=== PATIENT | female | born 2000 | race American Indian/Alaskan Native ===

== ENCOUNTER 2019-08-15 16:49 | Emergency (ER) | payer BC ==
[2019-08-15] MEDS ORDERED: Ondansetron 4 MG Tab.DIS PO ONE ×2 (16:50→17:15)
[2019-08-15 16:58] VITALS: BP 111/51; PULSE 100
[2019-08-15] MEDS ORDERED: Ondansetron 4 MG Tab.DIS ONE (17:39)
--- NOTE | 2019-08-15 20:48 | EDM.PDOC ---
Scribed by Zuri Fernandes 08/15/19 1948 for Susy Brown NP ED HPI GENERAL MEDICAL PROBLEM - General Chief Complaint: Gastrointestinal Problem Stated Complaint: THROWING UP Time Seen by Provider: 08/15/19 17:20 Source of Information: Reports: Patient, RN, RN Notes Reviewed History Limitations: Reports: No Limitations - History of Present Illness INITIAL COMMENTS - FREE TEXT/NARRATIVE: Patient presents to the ER with nausea that started yesterday. Her sister is in the ER with the same complaint. The family all ate the same food. She has not vomited. Onset Date: 08/14/19 Duration: Getting Worse Location: Reports: Abdomen Quality: Reports: Ache Severity: Severe Improves with: Reports: None Worsens with: Reports: None Associated Symptoms: Reports: No Other Symptoms - Related Data Allergies Allergy/AdvReac Type Severity Reaction Status Date / Time No Known Allergies Allergy Verified 08/15/19 16:58 Home Meds: Home Meds . [No Known Home Meds] 11/15/15 [History] Past Medical History - Past Health History Medical/Surgical History: Denies Medical/Surgical History Social & Family History - Family History Family Medical History: Noncontributory - Tobacco Use Smoking Status *Q: Current Every Day Smoker Years of Tobacco use: 2 Packs/Tins Daily: 0.3 Second Hand Smoke Exposure: Yes - Recreational Drug Use Recreational Drug Use: No ED ROS GENERAL - Review of Systems Review Of Systems: Comprehensive ROS is negative, except as noted in HPI. ED EXAM, GI/ABD - Physical Exam Exam: See Below Exam Limited By: No Limitations General Appearance: Alert, WD/WN, No Apparent Distress Eyes: Bilateral: Normal Appearance Ears: Normal External Exam, Normal Canal, Hearing Grossly Normal, Normal TMs Nose: Normal Inspection, Normal Mucosa, No Blood Throat/Mouth: Normal Inspection, Normal Lips, Normal Teeth, Normal Gums, Normal Oropharynx, Normal Voice, No Airway Compromise Head: Atraumatic, Normocephalic Neck: Normal Inspection, Supple, Non-Tender, Full Range of Motion Respiratory/Chest: No Respiratory Distress, Lungs Clear, Normal Breath Sounds, No Accessory Muscle Use, Chest Non-Tender Cardiovascular: Normal Peripheral Pulses, Regular Rate, Rhythm, No Edema, No Gallop, No JVD, No Murmur, No Rub GI/Abdominal Exam: Normal Bowel Sounds, Soft, Non-Tender, No Organomegaly, No Distention, No Abnormal Bruit, No Mass, Pelvis Stable (Female) Exam: Deferred Rectal (Female) Exam: Deferred Back Exam: Normal Inspection, Full Range of Motion, NT Extremities: Normal Inspection, Normal Range of Motion, Non-Tender, Normal Capillary Refill, No Pedal Edema Neurological: Alert, Oriented, CN II-XII Intact, Normal Cognition, Normal Gait, Normal Reflexes, No Motor/Sensory Deficits Psychiatric: Normal Affect, Normal Mood Skin Exam: Warm, Dry, Intact, Normal Color, No Rash Lymphatic: No Adenopathy Course - Vital Signs Last Recorded V/S: Last Vital Signs Temp 37.2 C 08/15/19 16:54 Pulse 100 08/15/19 16:54 Resp 18 08/15/19 16:54 BP 111/51 L 08/15/19 16:54 Pulse Ox 97 08/15/19 16:54 - Orders/Labs/Meds Meds: Medications Discontinued Medications Generic Name Dose Route Start Last Admin Trade Name Demetria PRN Reason Stop Dose Admin Ondansetron HCl 4 mg 08/15/19 17:15 08/15/19 17:21 Zofran Odt PO 08/15/19 17:16 4 mg ONETIME ONE Administration Ondansetron HCl Confirm 08/15/19 17:39 Zofran Odt Administered 08/15/19 17:40 Dose 8 mg .ROUTE .STK-MED ONE Departure - Departure Time of Disposition: 17:37 Disposition: Home, Self-Care 01 Condition: Good Clinical Impression: Gastroenteritis - Discharge Information Instructions: Viral Gastroenteritis, Adult Forms: ED Department Discharge Additional Instructions: Zofran as needed for nausea q 6 hours. If unable to keep fluids down and vomiting with diarrhea or if abdominal pain worsens; then return to the ER Sepsis Event Note - Evaluation Sepsis Screening Result: No Definite Risk - Focused Exam Vital Signs: Vital Signs Temp Pulse Resp BP Pulse Ox 08/15/19 16:54 37.2 C 100 18 111/51 L 97 Date Exam was Performed: 08/15/19 Time Exam was Performed: 17:45 I have read and agree with the documentation that has been completed regarding this visit. By signing this record, I attest that the documentation was completed in my physical presence and is an accurate record of the encounter.
== END 2019-08-15 17:47 | disposition home or self-care (01) ==
LOC: DL.ED 16:49
DX: K52.9 Noninfective gastroenteritis and colitis, unspecified (principal); F17.210 Nicotine dependence, cigarettes, uncomplicated
CPT/HCPCS: 99283; A9270

== ENCOUNTER 2020-11-08 00:05 | Inpatient (IN) | payer BC ==
[~2020-11-08 00:05] MED LIST: Carboprost Tromethamine 250 MCG/1 ML Amp IM PRN; Lactated Ringers 1,000 ML IV SCH; Lidocaine 1% 30 ML SDV INJECT PRN; Methylergonovine 0.2 MG/1 ML Amp IM PRN; Misoprostol 25 MCG (1/4 of 100 MCG) Tab PO PRN; Misoprostol 400 MCG (4 X 100 MCG TAB) RECTAL PRN; Ondansetron 4 MG/2 ML SDV IVPUSH PRN; Oxytocin/Normal Saline 30 UNIT/500 ML BAG IV SCH; Penicillin G Potassium 5 MILLUNITS in Sodium Chloride 0.9% 100 ML IV ONE; Sodium Chloride 0.9% 10 ML Syringe FLUSH PRN; Tranexamic Acid 1,000 MG in Sodium Chloride 0.9% 100 ML IV PRN
[2020-11-08] MEDS ORDERED: Misoprostol 400 MCG (4 X 100 MCG TAB) RECTAL PRN (02:03)
[2020-11-08] MEDS ORDERED: Misoprostol 25 MCG (1/4 of 100 MCG) Tab PO PRN (02:03)
--- NOTE | 2020-11-08 02:14 | HP ---
HISTORY OF PRESENT ILLNESS/CHIEF COMPLAINT: Princess Guardado is a 20-year-old G1, p 0-0-0-0 at 40 weeks 2 days gestation with an estimated delivery date of 11/05/2020 based on [id number]-1-day ultrasound, who presents for induction of labor. The patient is experiencing mild intermittent contractions throughout today, but these are tolerable and have not been increasing in intensity markedly. She has had no change in vaginal discharge or no leakage of fluid. She is having some lower back pain that has been constant throughout . Otherwise, she has no concerns this evening. OBSTETRIC HISTORY: The patient is a primigravida. GYNECOLOGIC HISTORY: No history of HSV. LABS: ABO blood type O positive, antibody screen negative. Rubella antibody IgG positive, rubella IgG antibody index 2.2. Syphilis nonreactive. Hep B surface antigen nonreactive. HIV nonreactive. Gonorrhea and chlamydia not detected. Hep C antibody nonreactive. Wet prep positive for clue cells, negative for trichomonas, fungal elements, budding yeast. Glucose 1-hour failed at 142 mg/dL, 3-hour glucose tolerance test passed. Group B streptococcus positive, noted 10/11/2020. PAST MEDICAL HISTORY: None. PAST SURGICAL HISTORY: None. PRIOR TO ADMISSION MEDICATIONS: 1. vitamin. 2. Ferrous sulphate 325 mg. ALLERGIES: No known drug allergies. SOCIAL HISTORY: Smoking status: Former smoker of 6 to 7 cigarettes daily. Quit date: 05/05/2020. Smokeless tobacco status: Never used. Alcohol use: Not currently. Drug use: Not currently, past recreational use of marijuana. Works at [employer] in [place]. Living with grandmother in [place]. Significant other is NeyDonald Anne. This their 1st baby together. FAMILY HISTORY: Diabetes in maternal grandmother. Negative family history of Down syndrome, multiple births, cystic fibrosis, defects. REVIEW OF SYSTEMS: General: No fevers, chills, malaise, appetite changes. HEENT: No headaches, vision changes, hearing changes, congestion, rhinorrhea, nasal discharge. Dermatologic: No skin changes, rashes, or lesions. Respiratory: No cough, shortness of breath, recent illness, pleuritic chest pain. Cardiovascular: No chest pain. Gastrointestinal: No changes to bowel or bladder. : No changes to vaginal discharge. Neuromuscular: No muscular weakness, numbness, tingling, arthritis, arthralgias. Some mild lower back pain consistent throughout . PHYSICAL EXAMINATION: Admission vitals: To be updated in [facility], General Appearance: She is alert, well appearing, in no apparent distress, accompanied at bedside by Wyatt. Lungs: Clear to auscultation bilaterally. No wheezes, rales, or rhonchi. Symmetric air entry. Heart: Regular rate and rhythm. No murmurs, rubs, gallops. Abdomen: Gravid, nontender. FHT category 1 tracing. Pelvic: Normal external genitalia, vulva, vagina, and cervix. Extremities: No redness or tenderness in the calves or thighs. Scant dependent edema of the lower extremities. SKIN: Normal coloration and turgor. No rashes. ASSESSMENT AND PLAN: Princess Guardado is a 20-year-old G1, P0-0-0-0 at 40 weeks and 2 days with an estimated delivery date of 11/05/2020 based on a 13-week-5- day ultrasound on 05/05/2020, who presents for elective induction of labor. 1. Maternal well-being: Well. 2. well-being: FHT category 1. 3. Labor, we will proceed with induction of labor and placement of Cytotec. 4. Group B streptococcus status: Positive. Plan: We will provide penicillin intrapartum following rupture of membranes. 5. Pain management: To be discussed at next cervical check. The patient discussed with Dr. Margret Dahl. [facility] /[id number] Patient was personally seen and examined with the medical student. I reviewed the noted scribed on my behalf and necessary changes have been made to reflect my opinion on the history, exam, assessment, and plan. Margret Dahl MD [facility]
[2020-11-08] MEDS ORDERED: hydrOXYzine HCl 25 MG Tab PO PRN (02:16)
[2020-11-08] MEDS: Penicillin G Potassium 3 MILLUNITS in Sodium Chloride 0.9% 100 ML IV SCH ×5 (02:32→22:45)
[2020-11-08] MEDS ORDERED: fentaNYL 100 MCG/2 ML SDV ONE ×2 (07:30→20:52)
[2020-11-08] MEDS ORDERED: Sodium Bicarbonate 4.2% 2.5 MEQ/5 ML SDV ONE ×3 (07:30→21:24)
[2020-11-08] MEDS ORDERED: EPINEPHrine 1 MG/1 ML Amp ONE ×3 (07:30→21:24)
[2020-11-08] MEDS: Lactated Ringers 1,000 ML IV SCH ×3 (10:00→21:17)
--- NOTE | 2020-11-08 11:54 | PN ---
DATE: 11/08/2020 SUBJECTIVE: Princess is feeling contractions, increasing in intensity. Feels slightly more intense than period cramps. No other complaints at this time. Has had cytotec x2. Has not started pitocin or penicillin yet. OBJECTIVE: Current Vital Signs: T 99.2, BP 119/69, P 85. General: Alert, no concerning distress. FHT category 1, baseline 150, moderate variability, positive for accelerations, negative for deceleration. [place]: elaine average 6 in 10-minute window. Pelvic: 1.5 cm, 75% effacement, station -2, soft cervix Frias score: 5 IMPRESSION AND PLAN: Ms. Guardado is a 20-year-old female, at 40w3d gestation, admitted for induction of labor. 1. Maternal well-being, doing well. 2. well-being, FHT category 1. 3. Labor: Labor is progressing, Cytotec x2. We will hold on Cytotec at this time. Encouraged the patient to bounce on labor ball, move around, or take bath. We will monitor strip to get baseline and recheck within an hour. Frias score of 5. We will consider starting Pitocin. 4. GBS status positive: We will start penicillin per protocol once Pitocin is started. 5. Pain management: Pain controlled, rates at 02/09 FRANCISCA Estevez [facility] /[id number] Patient was personally seen and examined with the medical student. I reviewed the noted scribed on my behalf and necessary changes have been made to reflect my opinion on the history, exam, assessment, and plan. Margret Dahl MD [facility]
[2020-11-08] MEDS: Oxytocin/Normal Saline 30 UNIT/500 ML BAG IV SCH (12:45)
--- NOTE | 2020-11-08 13:36 | PN ---
DATE: 11/08/2020 SUBJECTIVE: Princess feels contractions, increasing in intensity. Feels slightly more intense than period cramps. No other complaints at this time. Has had Cytotec x2. Has not started Pitocin or penicillin yet. OBJECTIVE: Current Vital Signs: BP 142/66, P 84, T afebrile. General: Alert, no concerning distress. FHT: Category 1, baseline 150, moderate variability, accelerations present, decelerations absent. [place]: Saman average 6 in 10-minute window. Pelvic: 2.5 cm, 75% effacement, station -2, soft cervix. IMPRESSION AND PLAN: Ms. Guardado is a 20-year-old female at 40W3D gestation, admitted for induction of labor. 1. Maternal well-being: Doing well. 2. well-being: FHT category 1. 3. Labor: Labor is progressing, Cytotec x2. We will hold Cytotec at this time. Encouraged the patient to bounce on labor ball, move around, or take a bath. We will monitor strip to get baseline. Once contractions space out, we will start Pitocin per protocol. 4. Group B streptococcus status positive: We will start penicillin per protocol once Pitocin is started. 5. Pain management: Pain is being controlled, rates at 6/10. FRANCISCA Estevez [facility] /[id number] Patient was personally seen and examined with the medical student. I reviewed the noted scribed on my behalf and necessary changes have been made to reflect my opinion on the history, exam, assessment, and plan. Margret Dahl MD [facility]
[2020-11-08] MEDS ORDERED: Penicillin G Potassium 5 MILLUNITS in Sodium Chloride 0.9% 100 ML IV ONE (14:30)
[2020-11-08] MEDS ORDERED: Ondansetron 4 MG/2 ML SDV ONE (20:54)
--- NOTE | 2020-11-08 21:14 | PCM.SN.2 ---
- Free Text/Narrative Note: Intrathecal. Sitting position, sterile prep and drape. 1% lidocaine w bicarb for skinwheal to L2 L3 interspace. Introducer, 24 ga pencan x 1. Pos CSF, neg heme, neg parasthesia. 0.1 ml pf 1:1000 pf Epi, 20 mcg pf sufenta, 30 mcg pf fentanyl, 0.4 ml pf NS and 6 mg of 0.75% pf bupivacaine injected after CSF aspiration. Pt to L lateral position. Procedure time 2054 to 2124
--- NOTE | 2020-11-08 21:21 | PN ---
DATE: 11/08/2020 SUBJECTIVE: Princess feels contractions, which are increasing in intensity. No other complaints at this time. Has had Cytotec x2. Pitocin is running at rate of 2. 1 round of penicillin complete, 2nd round started. PROCEDURES: Artificial rupture of membranes performed at 6:45 p.m. Mec-stained fluid. FHT category 1 prior and after procedure. OBJECTIVE: General: Alert, no concerning distress. FHT: Category 1, baseline 150s, moderate variability, accelerations present, decelerations absent. [place]: Saman average 6 in 10-minute window. Pelvic: After AROM, dilated 4 cm, 75% effacement, station -2. IMPRESSION AND PLAN: Ms. Guardado is a 20-year-old female, G1, P0, at 40 W, 3 D gestation, admitted for induction of labor. 1. Maternal well-being: Doing well. 2. well-being: FHT category 1. 3. Labor: Labor is progressing, Cytotec x2. We will hold Cytotec at this time. Pitocin at rate of 2. Treating with penicillin per protocol. AROM performed at 6:45 p.m. Mec-stained fluid. Continue to encourage the patient to bounce on labor ball, move around, or take bath. We will continue to titrate Pitocin per protocol. 4. Pain management: Pain is being controlled. Discussed pain management during labor. We will consider intrathecal when indicated. [facility] /[id number] Patient was personally seen and examined with the medical student. I reviewed the noted scribed on my behalf and necessary changes have been made to reflect my opinion on the history, exam, assessment, and plan. Margret Dahl MD [facility]
[2020-11-08] MEDS ORDERED: fentaNYL 100 MCG/2 ML SDV ITHECAL ONE (21:24)
[2020-11-08] MEDS ORDERED: Sodium Chloride 0.9% 20 ML SDV ONE (21:24)
[2020-11-09] MEDS ORDERED: fentaNYL 100 MCG/2 ML SDV ONE (01:19)
[2020-11-09] MEDS ORDERED: EPINEPHrine 1 MG/1 ML Amp ONE ×2 (01:19→01:20)
[2020-11-09] MEDS ORDERED: fentaNYL 100 MCG/2 ML SDV ITHECAL ONE (01:20)
[2020-11-09] MEDS ORDERED: Sodium Chloride 0.9% 20 ML SDV IV ONE (01:20)
[2020-11-09] MEDS ORDERED: Sodium Bicarbonate 4.2% 2.5 MEQ/5 ML SDV ONE ×2 (01:20)
--- NOTE | 2020-11-09 01:39 | PCM.SN.2 ---
- Free Text/Narrative Note: Intrathecal. Sitting position, sterile prep and drape. 1% lidocaine w bicarb for skinwheal to L2 L3 interspace. Introducer, 24 ga pencan x 1. Pos CSF, neg heme, neg parasthesia. 0.1 ml pf 1:1000 pf Epi, 20 mcg pf sufenta, 30 mcg pf fentanyl, 0.4 ml pf NS and 6 mg of 0.75% pf bupivacaine injected after CSF aspiration. Pt to L lateral position. Procedure time 0120 to 0150
[2020-11-09] MEDS: Lactated Ringers 1,000 ML IV SCH ×2 (02:33→03:35)
[2020-11-09] MEDS: Penicillin G Potassium 3 MILLUNITS in Sodium Chloride 0.9% 100 ML IV SCH ×2 (02:34→06:40)
[2020-11-09] MEDS ORDERED: Lidocaine 1% 30 ML SDV ONE (05:29)
[2020-11-09] MEDS ORDERED: Oxytocin 10 Units/1 ML SDV IM PRN (06:21)
[2020-11-09] MEDS ORDERED: Benzocaine/Menthol 20%-0.5% Spray 56 GM Canister TOP PRN (06:21)
[2020-11-09] MEDS ORDERED: Carboprost Tromethamine 250 MCG/1 ML Amp IM PRN (06:21)
[2020-11-09] MEDS ORDERED: Acetaminophen 325 MG Tab PO PRN (06:21)
[2020-11-09] MEDS ORDERED: Sodium Chloride 0.9% 10 ML Syringe FLUSH PRN (06:21)
[2020-11-09] MEDS ORDERED: Simethicone 80 MG Tab.Chew PO PRN (06:21)
[2020-11-09] MEDS ORDERED: Zolpidem 5 MG Tab PO PRN (06:21)
[2020-11-09] MEDS ORDERED: Misoprostol 400 MCG (4 X 100 MCG TAB) RECTAL PRN (06:21)
[2020-11-09] MEDS ORDERED: Tranexamic Acid 1,000 MG in Sodium Chloride 0.9% 100 ML IV PRN (06:21)
[2020-11-09] MEDS: Oxytocin/Normal Saline 30 UNIT/500 ML BAG IV SCH (06:51)
--- NOTE | 2020-11-09 07:22 | PN ---
DATE: 11/08/2020 Labor Progress Note SUBJECTIVE: Princess is feeling contractions, increasing intensity, and starting to feel back labor. No other complaints at this time. Discussed the possibility of an intrathecal as labor progresses. Has had Cytotec x2. Started Pitocin currently at a rate of 2. Started the first round of penicillin. OBJECTIVE: BP 132/71, P 80. General: Alert, no concerning distress. FHT category 1: Baseline 145, moderate variability, accelerations present, decelerations absent. [place]: Saman average 6 in 10-minute window, dysfunctional pattern. Pelvic exam: 4 cm, 75% effacement, station -1, soft cervix. IMPRESSION AND PLAN: Ms Guardado is a 20-year-old female, G1, P0, at 40-W, 3-D gestation, admitted for induction of labor. Maternal well-being, doing well. well-being: heart tones category 1. Labor: Labor progressing, Cytotec x2, Pitocin at rate of 2. Encouraged the patient to bounce on labor ball, move around, or take a bath. We will increase Pitocin per protocol. GBS status positive: First round of penicillin administered. We will start the next dose after 4 hours. Pain management: Pain controlled, we will consider intrathecal as labor progresses. [facility] /[id number] Patient was personally seen and examined with the medical student. I reviewed the noted scribed on my behalf and necessary changes have been made to reflect my opinion on the history, exam, assessment, and plan. Margret Dahl MD [facility]
--- NOTE | 2020-11-09 08:16 | PCM.DEL ---
L & D Note - General Info Date of Service: 11/09/20 - Delivery Note Labor: Augmented by ARM, Augmented by Oxytocin Cervical Ripening Method: Misoprostil, Oxytocin Delivery Outcome: Livebirth Delivery Method: Spontaneous Vaginal Delivery-Single Presentation: Left Occiput Anterior (PER) Nuchal Cord: None Anesthesia Type: Intrathecal, Nitrous Oxide Anesthetic: Lidocaine (Xylocaine) 1% Plain Local Anesthetic Volume: Other (10 cc) Episiotomy Type: None Laceration: 2nd Degree, Perineal Suture type: Vicryl Suture size: 3-0 Placenta: Intact, Spontaneous Cord: 3 Vessels Estimated Blood Loss: 300 : Bulb Syringe, Stimulated Provider: Margret Dahl Score 1 min: 8 Score 5 min: 9 Post Delivery Events: Shoulder Dystocia (45 second) Delivery Comments (Free Text/Narrative):: Patient was admitted for induction of labor secondary to post dates. She received 2 doses of cytotec then started on pitocin. AROM performed for mec stained fluid. She received 2 intrathecals and utilized nitrous oxide while pushing. She progressed to complete dilation and pushed for less than 2 hours. Delivery was complicated by shoulder dystocia. head was in OA position and rotated to PER position. Patient was placed in [place] and suprapubic pressure was applied. Anterior shoulder was delivered by hooking the axilla and giving f irm traction. Infant's body then delivered without difficulty. Infant was placed on maternal abdomen and cord was clamped and cut. taken to warmer, dried and stimulated. Placenta was delivered intact via active management. Oxytocin was initiated immediately following the delivery of the placenta. Cervix, vagina, and perineum were explored. A 2nd degree perineal laceration was repaired in the usual fashion. Mother and remained stable and in the delivery room. Apgars were 8 and 9. The time elapsed from delivery of head to delivery of body was 45 seconds. - General Info Date of Service: 11/09/20 - Patient Data Vitals - Most Recent: Last Vital Signs Temp 98.9 F 11/09/20 01:37 Pulse 107 H 11/09/20 06:45 Resp 12 11/08/20 18:15 BP 140/66 11/09/20 06:45 Pulse Ox 97 11/08/20 23:15 Weight - Most Recent: 220 lb Lab Results Last 24 Hours: Laboratory Results - last 24 hr 11/09/20 Range/Units 07:52 WBC 25.3 H* (5.0-10.0) 10^3/uL RBC 3.56 L (4.2-5.4) 10^6/uL Hgb 10.9 L (12.0-16.0) g/dL Hct 32.1 L (37.0-47.0) % MCV 90.2 (80-100) fL MCH 30.6 (27.0-34.0) pg MCHC 34.0 (33.0-35.0) g/dL Plt Count 323 (150-450) 10^3/uL Med Orders - Current: Current Medications Acetaminophen (Tylenol) 650 mg PO Q4H PRN PRN Reason: Pain/Fever Carboprost Tromethamine (Hemabate Ds) 250 mcg IM ASDIRECTED PRN PRN Reason: HEMORRHAGE Hydroxyzine HCl (Atarax) 50 mg PO ONETIME PRN PRN Reason: Sleep Last Admin: 11/08/20 02:28 Dose: 50 mg Documented by: Lactated Ringer's (Ringers, Lactated) 1,000 mls @ 999 mls/hr IV ASDIRECTED ON LICENSE OF [facility] Last Admin: 11/08/20 21:13 Dose: 999 mls/hr Documented by: Oxytocin/Sodium Chloride (Pitocin In Ns 30 Unit/500 Ml) 30 unit in 500 mls @ 2 mls/hr IV TITRATE GAV[place]; Protocol Last Admin: 11/09/20 06:51 Dose: 250 munits/min, 250 mls/hr Documented by: Lactated Ringer's (Ringers, Lactated) 1,000 mls @ 125 mls/hr IV ASDIRECTED [place] Last Admin: 11/09/20 03:35 Dose: 125 mls/hr Documented by: Tranexamic Acid 1,000 mg/ (Sodium Chloride) 110 mls @ 660 mls/hr IV ONETIME PRN PRN Reason: Bleeding Oxytocin/Sodium Chloride (Pitocin In Ns 30 Unit/500 Ml) 30 unit in 500 mls @ 2 mls/hr IV TITRATE GAVIOTA; Protocol Penicillin G Potassium 3 (millunits/ Sodium Chloride) 100 mls @ 200 mls/hr IV Q4HR GAV[place] Last Admin: 11/08/20 18:01 Dose: Not Given Documented by: Lidocaine HCl (Xylocaine-Mpf 1%) 30 ml INJECT ASDIRECTED PRN PRN Reason: Perineal Repair Last Admin: 11/09/20 05:35 Dose: 30 ml Documented by: Methylergonovine Maleate (Methergine) 0.2 mg IM ASDIRECTED PRN PRN Reason: Hemorrhage Misoprostol (Misoprostol 25 Mcg (1/4 Of 100 Mcg) Tab) 25 mcg PO Q4H PRN PRN Reason: cervical ripening Last Admin: 11/08/20 02:10 Dose: 25 mcg Documented by: Misoprostol (Cytotec) 800 mcg RECTAL ASDIRECTED PRN PRN Reason: Hemorrhage Ondansetron HCl (Zofran) 4 mg IVPUSH Q4H PRN PRN Reason: Nausea/Vomiting Last Admin: 11/08/20 21:12 Dose: 4 mg Documented by: Sodium Chloride (Saline Flush) 10 ml FLUSH ASDIRECTED PRN PRN Reason: Keep Vein Open Last Admin: 11/08/20 10:06 Dose: 10 ml Documented by: Discontinued Medications Epinephrine HCl (Epinephrine 1 Mg/1 Ml Amp) Confirm Administered Dose 1 mg .ROUTE .STK-MED ONE Stop: 11/08/20 07:31 Last Admin: 11/08/20 18:01 Dose: Not Given Documented by: Fentanyl (Fentanyl 100 Mcg/2 Ml Sdv) Confirm Administered Dose 100 mcg .ROUTE .STK-MED ONE Stop: 11/08/20 07:31 Last Admin: 11/08/20 18:01 Dose: Not Given Documented by: Penicillin G Potassium 5 (millunits/ Sodium Chloride) 100 mls @ 200 mls/hr IV ONETIME ONE Stop: 11/07/20 22:29 Last Admin: 11/08/20 02:32 Dose: Not Given Documented by: Misoprostol (Cytotec) 25 mcg PO Q4H PRN PRN Reason: cervical ripening Misoprostol (Cytotec) 800 mcg RECTAL ASDIRECTED PRN PRN Reason: Hemorrhage Sodium Bicarbonate (Sodium Bicarbonate 4.2% 2.5 Meq/5 Ml Sdv) Confirm Administered Dose 2.5 meq .ROUTE .STK-MED ONE Stop: 11/08/20 07:31 Last Admin: 11/08/20 18:01 Dose: Not Given Documented by: Sufentanil Citrate (Sufentanil 50 Mcg/1 Ml Amp) Confirm Administered Dose 50 mcg .ROUTE .STK-MED ONE Stop: 11/08/20 07:31 Last Admin: 11/08/20 18:01 Dose: Not Given Documented by: - Problem List Review Problem List Initiated/Reviewed/Updated: Yes - My Orders Last 24 Hours: My Active Orders 11/08/20 Lunch Clear Liquid Diet [DIET] 11/09/20 02:15 Insert Urinary Catheter [OM.PC] Q24H 11/09/20 06:21 Acetaminophen [TylenoL] 650 mg PO Q6H PRN Benzocaine/Menthol [Dermoplast Pain Relief [place]] See Dose Instructions TOP Q4H PRN Carboprost Tromethamine [Hemabate DS] 250 mcg IM ASDIRECTED PRN Docusate Sodium [Colace] 100 mg PO BID PRN Ibuprofen [Motrin] 800 mg PO Q8H PRN Oxytocin [Pitocin] 10 unit IM ONETIME PRN Simethicone 80 mg PO Q4H PRN Sodium Chloride 0.9% [Saline Flush] 10 ml FLUSH ASDIRECTED PRN Tranexamic Acid [Cyklokapron] 1,000 mg Sodium Chloride 0.9% [Normal Saline] 100 ml IV ONETIME Zolpidem [Ambien] 5 mg PO BEDTIME PRN miSOPROStoL [Cytotec] 800 mcg RECTAL ONETIME PRN 11/09/20 06:22 Up ad Rama [RC] ASDIRECTED Assess Lochia [WOMSER] Per Unit Routine Assess Uterine Involution [WOMSER] Per Unit Routine Breast Pump [WOMSER] Per Unit Routine Ice Therapy [OM.PC] Per Unit Routine Perineal Care [OM.PC] Per Unit Routine Saline Lock Insert [OM.PC] Urgent Sitz Bath [OM.PC] Per Unit Routine 11/09/20 Breakfast Regular Diet [DIET] 11/09/20 09:00 Vit with Ca/FA/Iron [ Plus Iron] 1 each PO DAILY 11/09/20 Lunch Regular Diet [DIET] 11/09/20 Dinner Regular Diet [DIET]
[2020-11-09] MEDS: Ibuprofen 800 MG Tab PO PRN ×2 (09:26→17:50)
[2020-11-09] MEDS: Prenatal Multivitamin with Calcium/Folic Acid/Iron Tab PO SCH (09:26)
[2020-11-09] MEDS: Docusate Sodium 100 MG Cap PO PRN ×2 (09:26→21:09)
[2020-11-09] MEDS: Acetaminophen 325 MG Tab PO PRN (21:09)
[2020-11-10] MEDS: Ibuprofen 800 MG Tab PO PRN ×3 (01:52→17:28)
--- NOTE | 2020-11-10 08:10 | PCM.DCSUM1 ---
Discharge Summary - Hospital Course Free Text/Narrative:: Patient admitted for induction of labor due to post dates. She received 2 doses of Cytotec followed by Pitocin. AROM performed with mec stained fluid. She received an intrathecal X2. She progressed to complete and pushed for less than 2 hours. Delivery complicated by a 45 second shoulder dystocia. suffered right clavicular fracture and brachial plexus injury during delivery. Patient's post course was uncomplicated. She was started on iron for acute blood loss anemia. She was discharged home on post day 2. - Discharge Data Discharge Date: 11/11/20 Discharge Disposition: Home, Self-Care 01 Condition: Good - Referral to Home Health Primary Care Physician: Margret Dahl MD - Discharge Plan *PRESCRIPTION DRUG MONITORING PROGRAM REVIEWED*: Not Applicable *COPY OF PRESCRIPTION DRUG MONITORING REPORT IN PATIENT MAXIMILIAN: Not Applicable Home Medications: Home Meds Acetaminophen [Tylenol] 650 mg PO Q4H PRN tablet 11/11/20 [Rx] Docusate Sodium [Colace] 100 mg PO BID PRN cap 11/11/20 [Rx] Ferrous Sulfate 325 mg PO BIDMEALS tablet 11/11/20 [Rx] Ibuprofen [Motrin] 800 mg PO Q8H PRN tablet 11/11/20 [Rx] Vit with Ca/FA/Iron [ Plus Iron] 1 each PO DAILY tablet 11/11/20 [Rx] Patient Handouts: Baby Blues, Care of a Perineal Tear, Care After Vaginal Delivery - Discharge Summary/Plan Comment DC Time >30 min.: No - Patient Data Vitals - Most Recent: Last Vital Signs Temp 97.8 F 11/09/20 20:00 Pulse 91 11/09/20 20:00 Resp 16 11/09/20 20:00 BP 125/59 L 11/09/20 20:00 Pulse Ox 97 11/08/20 23:15 Weight - Most Recent: 220 lb Lab Results - Last 24 hrs: Laboratory Results - last 24 hr 11/10/20 Range/Units 06:10 WBC 14.1 H (5.0-10.0) 10^3/uL RBC 2.72 L (4.2-5.4) 10^6/uL Hgb 8.3 L D (12.0-16.0) g/dL Hct 25.0 L (37.0-47.0) % MCV 91.9 (80-100) fL MCH 30.5 (27.0-34.0) pg MCHC 33.2 (33.0-35.0) g/dL Plt Count 263 (150-450) 10^3/uL Med Orders - Current: Current Medications Acetaminophen (Tylenol) 650 mg PO Q4H PRN PRN Reason: Pain/Fever Last Admin: 11/09/20 21:09 Dose: 650 mg Documented by: Carboprost Tromethamine (Hemabate Ds) 250 mcg IM ASDIRECTED PRN PRN Reason: HEMORRHAGE Hydroxyzine HCl (Atarax) 50 mg PO ONETIME PRN PRN Reason: Sleep Last Admin: 11/08/20 02:28 Dose: 50 mg Documented by: Lactated Ringer's (Ringers, Lactated) 1,000 mls @ 999 mls/hr IV ASDIRECTED [place] Last Admin: 11/08/20 21:13 Dose: 999 mls/hr Documented by: Oxytocin/Sodium Chloride (Pitocin In Ns 30 Unit/500 Ml) 30 unit in 500 mls @ 2 mls/hr IV TITRATE [facility]; Protocol Last Titration: 11/09/20 09:56 Dose: 0 munits/min, 0 mls/hr Documented by: Lactated Ringer's (Ringers, Lactated) 1,000 mls @ 125 mls/hr IV ASDIRECTED [place] Last Admin: 11/09/20 03:35 Dose: 125 mls/hr Documented by: Tranexamic Acid 1,000 mg/ (Sodium Chloride) 110 mls @ 660 mls/hr IV ONETIME PRN PRN Reason: Bleeding Oxytocin/Sodium Chloride (Pitocin In Ns 30 Unit/500 Ml) 30 unit in 500 mls @ 2 mls/hr IV TITRATE [facility]; Protocol Penicillin G Potassium 3 (millunits/ Sodium Chloride) 100 mls @ 200 mls/hr IV Q4H [facility] Last Admin: 11/09/20 06:40 Dose: Not Given Documented by: Lidocaine HCl (Xylocaine-Mpf 1%) 30 ml INJECT ASDIRECTED PRN PRN Reason: Perineal Repair Last Admin: 11/09/20 05:35 Dose: 30 ml Documented by: Methylergonovine Maleate (Methergine) 0.2 mg IM ASDIRECTED PRN PRN Reason: Hemorrhage Misoprostol (Misoprostol 25 Mcg (1/4 Of 100 Mcg) Tab) 25 mcg PO Q4H PRN PRN Reason: cervical ripening Last Admin: 11/08/20 02:10 Dose: 25 mcg Documented by: Misoprostol (Cytotec) 800 mcg RECTAL ASDIRECTED PRN PRN Reason: Hemorrhage Ondansetron HCl (Zofran) 4 mg IVPUSH Q4H PRN PRN Reason: Nausea/Vomiting Last Admin: 11/08/20 21:12 Dose: 4 mg Documented by: Sodium Chloride (Saline Flush) 10 ml FLUSH ASDIRECTED PRN PRN Reason: Keep Vein Open Last Admin: 11/08/20 10:06 Dose: 10 ml Documented by: Discontinued Medications Epinephrine HCl (Epinephrine 1 Mg/1 Ml Amp) Confirm Administered Dose 1 mg .R OUTE .STK-MED ONE Stop: 11/08/20 07:31 Last Admin: 11/08/20 18:01 Dose: Not Given Documented by: Fentanyl (Fentanyl 100 Mcg/2 Ml Sdv) Confirm Administered Dose 100 mcg .ROUTE .STK-MED ONE Stop: 11/08/20 07:31 Last Admin: 11/08/20 18:01 Dose: Not Given Documented by: Penicillin G Potassium 5 (millunits/ Sodium Chloride) 100 mls @ 200 mls/hr IV ONETIME ONE Stop: 11/07/20 22:29 Last Admin: 11/08/20 02:32 Dose: Not Given Documented by: Penicillin G Potassium 3 (millunits/ Sodium Chloride) 100 mls @ 200 mls/hr IV Q4HR [place] Last Admin: 11/08/20 18:01 Dose: Not Given Documented by: Penicillin G Potassium 5 (millunits/ Sodium Chloride) 100 mls @ 200 mls/hr IV ONETIME ONE Stop: 11/08/20 14:59 Last Admin: 11/08/20 14:40 Dose: 200 mls/hr Documented by: Misoprostol (Cytotec) 25 mcg PO Q4H PRN PRN Reason: cervical ripening Misoprostol (Cytotec) 800 mcg RECTAL ASDIRECTED PRN PRN Reason: Hemorrhage Sodium Bicarbonate (Sodium Bicarbonate 4.2% 2.5 Meq/5 Ml Sdv) Confirm Adm inistered Dose 2.5 meq .ROUTE .STK-MED ONE Stop: 11/08/20 07:31 Last Admin: 11/08/20 18:01 Dose: Not Given Documented by: Sufentanil Citrate (Sufentanil 50 Mcg/1 Ml Amp) Confirm Administered Dose 50 mcg .ROUTE .STK-MED ONE Stop: 11/08/20 07:31 Last Admin: 11/08/20 18:01 Dose: Not Given Documented by:
--- NOTE | 2020-11-10 08:10 | PCM.PNPP ---
- General Info Date of Service: 11/11/20 Subjective Update: Patient is post day 1 s/p induced vaginal delivery that was complicated by a shoulder dystocia. She is doing well. She has been ambulating without difficulty. She is urinating without difficulty. She is passing gas. She reports her lochia is mild. Pain is controlled with OTC medications. She is and feels it is going well. Denies any new concerns today. - Review of Systems General: Denies: Fever HEENT: Denies: Headaches, Visual Changes Pulmonary: Denies: Shortness of Breath Cardiovascular: Denies: Edema, Lightheadedness Gastrointestinal: Denies: Nausea, Vomiting Neurological: Denies: Dizziness, Headache - Patient Data Vital Signs - Most Recent: Last Vital Signs Temp 97.8 F 11/09/20 20:00 Pulse 91 11/09/20 20:00 Resp 16 11/09/20 20:00 BP 125/59 L 11/09/20 20:00 Pulse Ox 97 11/08/20 23:15 Weight - Most Recent: 220 lb Lab Results - Last 24 Hours: Laboratory Results - last 24 hr 11/10/20 Range/Units 06:10 WBC 14.1 H (5.0-10.0) 10^3/uL RBC 2.72 L (4.2-5.4) 10^6/uL Hgb 8.3 L D (12.0-16.0) g/dL Hct 25.0 L (37.0-47.0) % MCV 91.9 (80-100) fL MCH 30.5 (27.0-34.0) pg MCHC 33.2 (33.0-35.0) g/dL Plt Count 263 (150-450) 10^3/uL Med Orders - Current: Current Medications Acetaminophen (Tylenol) 650 mg PO Q4H PRN PRN Reason: Pain/Fever Last Admin: 11/09/20 21:09 Dose: 650 mg Documented by: Carboprost Tromethamine (Hemabate Ds) 250 mcg IM ASDIRECTED PRN PRN Reason: HEMORRHAGE Hydroxyzine HCl (Atarax) 50 mg PO ONETIME PRN PRN Reason: Sleep Last Admin: 11/08/20 02:28 Dose: 50 mg Documented by: Lactated Ringer's (Ringers, Lactated) 1,000 mls @ 999 mls/hr IV ASDIRECTED [place] Last Admin: 11/08/20 21:13 Dose: 999 mls/hr Documented by: Oxytocin/Sodium Chloride (Pitocin In Ns 30 Unit/500 Ml) 30 unit in 500 mls @ 2 mls/hr IV TITRATE [facility]; Protocol Last Titration: 11/09/20 09:56 Dose: 0 munits/min, 0 mls/hr Documented by: Lactated Ringer's (Ringers, Lactated) 1,000 mls @ 125 mls/hr IV ASDIRECTED [place] Last Admin: 11/09/20 03:35 Dose: 125 mls/hr Documented by: Tranexamic Acid 1,000 mg/ (Sodium Chloride) 110 mls @ 660 mls/hr IV ONETIME PRN PRN Reason: Bleeding Oxytocin/Sodium Chloride (Pitocin In Ns 30 Unit/500 Ml) 30 unit in 500 mls @ 2 mls/hr IV TITRATE [facility]; Protocol Penicillin G Potassium 3 (millunits/ Sodium Chloride) 100 mls @ 200 mls/hr IV Q4H [facility] Last Admin: 11/09/20 06:40 Dose: Not Given Documented by: Lidocaine HCl (Xylocaine-Mpf 1%) 30 ml INJECT ASDIRECTED PRN PRN Reason: Perineal Repair Last Admin: 11/09/20 05:35 Dose: 30 ml Documented by: Methylergonovine Maleate (Methergine) 0.2 mg IM ASDIRECTED PRN PRN Reason: Hemorrhage Misoprostol (Misoprostol 25 Mcg (1/4 Of 100 Mcg) Tab) 25 mcg PO Q4H PRN PRN Reason: cervical ripening Last Admin: 11/08/20 02:10 Dose: 25 mcg Documented by: Misoprostol (Cytotec) 800 mcg RECTAL ASDIRECTED PRN PRN Reason: Hemorrhage Ondansetron HCl (Zofran) 4 mg IVPUSH Q4H PRN PRN Reason: Nausea/Vomiting Last Admin: 11/08/20 21:12 Dose: 4 mg Documented by: Sodium Chloride (Saline Flush) 10 ml FLUSH ASDIRECTED PRN PRN Reason: Keep Vein Open Last Admin: 11/08/20 10:06 Dose: 10 ml Documented by: Discontinued Medications Epinephrine HCl (Epinephrine 1 Mg/1 Ml Amp) Confirm Administered Dose 1 mg .ROUTE .STK-MED ONE Stop: 11/08/20 07:31 Last Admin: 11/08/20 18:01 Dose: Not Given Documented by: Fentanyl (Fentanyl 100 Mcg/2 Ml Sdv) Confirm Administered Dose 100 mcg .ROUTE .STK-MED ONE Stop: 11/08/20 07:31 Last Admin: 11/08/20 18:01 Dose: Not Given Documented by: Penicillin G Potassium 5 (millunits/ Sodium Chloride) 100 mls @ 200 mls/hr IV ONETIME ONE Stop: 11/07/20 22:29 Last Admin: 11/08/20 02:32 Dose: Not Given Documented by: Penicillin G Potassium 3 (millunits/ Sodium Chloride) 100 mls @ 200 mls/hr IV Q4HR [place] Last Admin: 11/08/20 18:01 Dose: Not Given Documented by: Penicillin G Potassium 5 (millunits/ Sodium Chloride) 100 mls @ 200 mls/hr IV ONETIME ONE Stop: 11/08/20 14:59 Last Admin: 11/08/20 14:40 Dose: 200 mls/hr Documented by: Misoprostol (Cytotec) 25 mcg PO Q4H PRN PRN Reason: cervical ripening Misoprostol (Cytotec) 800 mcg RECTAL ASDIRECTED PRN PRN Reason: Hemorrhage Sodium Bicarbonate (Sodium Bicarbonate 4.2% 2.5 Meq/5 Ml Sdv) Confirm Administered Dose 2.5 meq .ROUTE .STK-MED ONE Stop: 11/08/20 07:31 Last Admin: 11/08/20 18:01 Dose: Not Given Documented by: Sufentanil Citrate (Sufentanil 50 Mcg/1 Ml Amp) Confirm Administered Dose 50 mcg .ROUTE .STK-MED ONE Stop: 11/08/20 07:31 Last Admin: 11/08/20 18:01 Dose: Not Given Documented by: - Interaction Support Person: Significant Other - Recovery Exam Fundal Tone: Firm Fundal Level: 1 Fingerbreadths Below Umbilicus Fundal Placement: Midline Lochia Amount: Small Lochia Color: Rubra/Red Perineum Description: Intact, Minimal Bruising/Swelling Episiotomy/Laceration: Approximated Bladder Status: Voiding Urinary Elimination: Voided - Exam General: Alert, Oriented HEENT: Mucous Membr. Moist/[place] Neck: Supple Lungs: Clear to Auscultation, Normal Respiratory Effort Cardiovascular: Regular Rate, Regular Rhythm GI/Abdominal Exam: Normal Bowel Sounds, Soft, Non-Tender, No Distention Extremities: Normal Inspection, Non-Tender, No Pedal Edema Skin: Warm, Dry Neurological: No New Focal Deficit Psy/Mental Status: Alert, Normal Affect, Normal Mood - Problem List & Annotations (1) Vaginal delivery SNOMED Code(s): 749521612 Code(s): O80 - ENCOUNTER FOR FULL-TERM UNCOMPLICATED DELIVERY Status: Acute Current Visit: Yes (2) Shoulder dystocia during labor and delivery SNOMED Code(s): 75415493 Code(s): O66.0 - OBSTRUCTED LABOR DUE TO SHOULDER DYSTOCIA Status: Acute Current Visit: Yes (3) Acute blood loss anemia SNOMED Code(s): 071612343 Code(s): D62 - ACUTE POSTHEMORRHAGIC ANEMIA Status: Acute Current Visit: Yes - Problem List Review Problem List Initiated/Reviewed/Updated: Yes - My Orders Last 24 Hours: My Active Orders 11/09/20 Breakfast Regular Diet [DIET] 11/09/20 09:00 Vit with Ca/FA/Iron [ Plus Iron] 1 each PO DAILY 11/09/20 Lunch Regular Diet [DIET] 11/09/20 Dinner Regular Diet [DIET] - Plan Plan:: Continue post cares. Pain is controlled. Continue to work on . Will plan to discharge home tomorrow. Margret Dahl MD
[2020-11-10] MEDS: Docusate Sodium 100 MG Cap PO PRN ×2 (09:17→21:47)
[2020-11-10] MEDS: Prenatal Multivitamin with Calcium/Folic Acid/Iron Tab PO SCH (09:17)
[2020-11-10] MEDS: Acetaminophen 325 MG Tab PO PRN ×2 (16:17→21:48)
[2020-11-10] MEDS: Ferrous Sulfate 325 MG Tab PO SCH (17:28)
[2020-11-11] MEDS: Ibuprofen 800 MG Tab PO PRN ×2 (02:30→11:13)
--- NOTE | 2020-11-11 08:01 | PCM.PNPP ---
- General Info Date of Service: 11/11/20 Subjective Update: Patient is day 2 s/p induced vaginal delivery complicated by shoulder dystocia. She reports her lochia is mild. She is . She has minimal pain controlled with OTC medications. She has been advancing her diet and has good PO intake. Denies nausea and vomiting. She is passing gas and had a bowel movement this morning. She has been ambulating. She has no complaints. No acute events overnight. She did score high on her depression screen and is somewhat concerned about developing depression. She has never needed medication before. Functional Status: Reports: Pain Controlled - Review of Systems General: Denies: Fever, Weakness HEENT: Denies: Headaches, Visual Changes Pulmonary: Denies: Shortness of Breath Cardiovascular: Denies: Edema, Lightheadedness Gastrointestinal: Denies: Nausea, Vomiting Neurological: Denies: Dizziness, Headache, Weakness - Patient Data Vital Signs - Most Recent: Last Vital Signs Temp 99.3 F 11/10/20 20:00 Pulse 91 11/10/20 20:00 Resp 16 11/10/20 20:00 BP 130/76 11/10/20 20:00 Pulse Ox 100 11/10/20 08:00 Weight - Most Recent: 220 lb Med Orders - Current: Current Medications Acetaminophen (Tylenol) 650 mg PO Q4H PRN PRN Reason: Pain/Fever Last Admin: 11/10/20 21:48 Dose: 650 mg Documented by: Carboprost Tromethamine (Hemabate Ds) 250 mcg IM ASDIRECTED PRN PRN Reason: HEMORRHAGE Hydroxyzine HCl (Atarax) 50 mg PO ONETIME PRN PRN Reason: Sleep Last Admin: 11/08/20 02:28 Dose: 50 mg Documented by: Lactated Ringer's (Ringers, Lactated) 1,000 mls @ 999 mls/hr IV ASDIRECTED [place] Last Admin: 11/08/20 21:13 Dose: 999 mls/hr Documented by: Oxytocin/Sodium Chloride (Pitocin In Ns 30 Unit/500 Ml) 30 unit in 500 mls @ 2 mls/hr IV TITRATE [facility]; Protocol Last Titration: 11/09/20 09:56 Dose: 0 munits/min, 0 mls/hr Documented by: Lactated Ringer's (Ringers, Lactated) 1,000 mls @ 125 mls/hr IV ASDIRECTED [place] Last Admin: 11/09/20 03:35 Dose: 125 mls/hr Documented by: Tranexamic Acid 1,000 mg/ (Sodium Chloride) 110 mls @ 660 mls/hr IV ONETIME PRN PRN Reason: Bleeding Oxytocin/Sodium Chloride (Pitocin In Ns 30 Unit/500 Ml) 30 unit in 500 mls @ 2 mls/hr IV TITRATE [facility]; Protocol Penicillin G Potassium 3 (millunits/ Sodium Chloride) 100 mls @ 200 mls/hr IV Q4H [facility] Last Admin: 11/09/20 06:40 Dose: Not Given Documented by: Lidocaine HCl (Xylocaine-Mpf 1%) 30 ml INJECT ASDIRECTED PRN PRN Reason: Perineal Repair Last Admin: 11/09/20 05:35 Dose: 30 ml Documented by: Methylergonovine Maleate (Methergine) 0.2 mg IM ASDIRECTED PRN PRN Reason: Hemorrhage Misoprostol (Misoprostol 25 Mcg (1/4 Of 100 Mcg) Tab) 25 mcg PO Q4H PRN PRN Reason: cervical ripening Last Admin: 11/08/20 02:10 Dose: 25 mcg Documented by: Misoprostol (Cytotec) 800 mcg RECTAL ASDIRECTED PRN PRN Reason: Hemorrhage Ondansetron HCl (Zofran) 4 mg IVPUSH Q4H PRN PRN Reason: Nausea/Vomiting Last Admin: 11/08/20 21:12 Dose: 4 mg Documented by: Sodium Chloride (Saline Flush) 10 ml FLUSH ASDIRECTED PRN PRN Reason: Keep Vein Open Last Admin: 11/08/20 10:06 Dose: 10 ml Documented by: Discontinued Medications Epinephrine HCl (Epinephrine 1 Mg/1 Ml Amp) Confirm Administered Dose 1 mg .ROUTE .STK-MED ONE Stop: 11/08/20 07:31 Last Admin: 11/08/20 18:01 Dose: Not Given Documented by: Epinephrine HCl (Epinephrine 1 Mg/1 Ml Amp) Confirm Administered Dose 1 mg .RO [place]OWL[place] .STK-MED ONE Stop: 11/08/20 20:54 Last Admin: 11/08/20 21:42 Dose: Not Given Documented by: Fentanyl (Fentanyl 100 Mcg/2 Ml Sdv) Confirm Administered Dose 100 mcg .ROUTE .STK-MED ONE Stop: 11/08/20 07:31 Last Admin: 11/08/20 18:01 Dose: Not Given Documented by: Fentanyl (Fentanyl 100 Mcg/2 Ml Sdv) Confirm Administered Dose 100 mcg .ROUTE .STK-MED ONE Stop: 11/08/20 20:53 Last Admin: 11/08/20 21:41 Dose: Not Given Documented by: Penicillin G Potassium 5 (millunits/ Sodium Chloride) 100 mls @ 200 mls/hr IV ONETIME ONE Stop: 11/07/20 22:29 Last Admin: 11/08/20 02:32 Dose: Not Given Documented by: Penicillin G Potassium 3 (millunits/ Sodium Chloride) 100 mls @ 200 mls/hr IV Q4HR [facility] Last Admin: 11/08/20 18:01 Dose: Not Given Documented by: Penicillin G Potassium 5 (millunits/ Sodium Chloride) 100 mls @ 200 mls/hr IV ONETIME ONE Stop: 11/08/20 14:59 Last Admin: 11/08/20 14:40 Dose: 200 mls/hr Documented by: Misoprostol (Cytotec) 25 mcg PO Q4H PRN PRN Reason: cervical ripening Misoprostol (Cytotec) 800 mcg RECTAL ASDIRECTED PRN PRN Reason: Hemorrhage Ondansetron HCl (Ondansetron 4 Mg/2 Ml Sdv) Confirm Administered Dose 4 mg .ROUTE .STK-MED ONE Stop: 11/08/20 20:55 Last Admin: 11/08/20 21:42 Dose: Not Given Documented by: Sodium Bicarbonate (Sodium Bicarbonate 4.2% 2.5 Meq/5 Ml Sdv) Confirm Administered Dose 2.5 meq .ROUTE .STK-MED ONE Stop: 11/08/20 07:31 Last Admin: 11/08/20 18:01 Dose: Not Given Documented by: Sodium Bicarbonate (Sodium Bicarbonate 4.2% 2.5 Meq/5 Ml Sdv) Confirm Administered Dose 2.5 meq .ROUTE .STK-MED ONE Stop: 11/08/20 20:54 Last Admin: 11/08/20 21:42 Dose: Not Given Documented by: Sufentanil Citrate (Sufentanil 50 Mcg/1 Ml Amp) Confirm Administered Dose 50 mcg .ROUTE .STK-MED ONE Stop: 11/08/20 07:31 Last Admin: 11/08/20 18:01 Dose: Not Given Documented by: Sufentanil Citrate (Sufentanil 50 Mcg/1 Ml Amp) Confirm Administered Dose 50 mcg .ROUTE .[facility]-MED ONE Stop: 11/08/20 20:54 Last Admin: 11/08/20 21:42 Dose: Not Given Documented by: - Infant Interaction Support Person: Significant Other - Recovery Exam Fundal Tone: Firm Fundal Level: 1 Fingerbreadths Below Umbilicus Fundal Placement: Midline Lochia Amount: Small Lochia Color: Rubra/Red Perineum Description: Intact, Minimal Bruising/Swelling Episiotomy/Laceration: Approximated Bladder Status: Voiding Urinary Elimination: Voided - Exam General: Alert, Oriented HEENT: Mucous Membr. Moist/[place] Neck: Supple Lungs: Clear to Auscultation, Normal Respiratory Effort Cardiovascular: Regular Rate, Regular Rhythm GI/Abdominal Exam: Normal Bowel Sounds, Soft, Non-Tender, No Distention Extremities: Normal Inspection, Normal Range of Motion, Non-Tender, Pedal Edema (2+) Skin: Warm, Dry Neurological: No New Focal Deficit Psy/Mental Status: Alert, Normal Affect, Normal Mood - Problem List & Annotations (1) Vaginal delivery SNOMED Code(s): 153063187 Code(s): O80 - ENCOUNTER FOR FULL-TERM UNCOMPLICATED DELIVERY Status: Acute Current Visit: Yes (2) Shoulder dystocia during labor and delivery SNOMED Code(s): 01271228 Code(s): O66.0 - OBSTRUCTED LABOR DUE TO SHOULDER DYSTOCIA Status: Acute Current Visit: Yes (3) Acute blood loss anemia SNOMED Code(s): 450897322 Code(s): D62 - ACUTE POSTHEMORRHAGIC ANEMIA Status: Acute Current Visit: Yes - Problem List Review Problem List Initiated/Reviewed/Updated: Yes - My Orders Last 24 Hours: My Active Orders 11/10/20 18:00 Ferrous Sulfate 325 mg PO BIDMEALS - Plan Plan:: Continue post cares. Pain is controlled. Continue to work on . Will discharge home today. Infant remains admitted for phototherapy. Signs and symptoms of depression, mastitis and normal expectations for lochia discussed with the patient. We will address post depression further at next well child visit. Advised pelvic rest for 6 weeks. control to be discussed during that visit. Follow up in 6 weeks for post visit. Margret Dahl MD
[2020-11-11] MEDS: Docusate Sodium 100 MG Cap PO PRN (11:12)
[2020-11-11] MEDS: Prenatal Multivitamin with Calcium/Folic Acid/Iron Tab PO SCH (11:12)
[2020-11-11] MEDS: Ferrous Sulfate 325 MG Tab PO SCH (11:13)
[2020-11-11 12:42] VITALS: BP 127/74; PULSE 82
== END 2020-11-11 13:45 | disposition home or self-care (01) | DRG 560 ==
LOC: DL.OBCHECK 00:05 → DL.OB 01:43 → OBSVTOIN 11-09 05:19
PROVIDERS: ADMIT Family Medicine; ATTEND Family Medicine
PROC: 10E0XZZ Delivery of Products of Conception, External Approach (ICD-10-PCS; principal; 2020-11-09)
PROC: 10907ZC Drainage of Amniotic Fluid, Therapeutic from Products of Conception, Via Natural or Artificial Opening (ICD-10-PCS; 2020-11-09)
PROC: 3E0P7VZ Introduction of Hormone into Female Reproductive, Via Natural or Artificial Opening (ICD-10-PCS; 2020-11-09)
PROC: 0KQM0ZZ Repair Perineum Muscle, Open Approach (ICD-10-PCS; 2020-11-09)
PROC: 3E0R3BZ Introduction of Anesthetic Agent into Spinal Canal, Percutaneous Approach (ICD-10-PCS; 2020-11-09)
PROC: 00HU33Z Insertion of Infusion Device into Spinal Canal, Percutaneous Approach (ICD-10-PCS; 2020-11-09)
DX: O48.0 Post-term pregnancy (principal); Z37.0 Single live birth; Z3A.40 40 weeks gestation of pregnancy; O77.0 Labor and delivery complicated by meconium in amniotic fluid; O99.02 Anemia complicating childbirth; D62 Acute posthemorrhagic anemia; O66.0 Obstructed labor due to shoulder dystocia; Z87.891 Personal history of nicotine dependence; O99.824 Streptococcus B carrier state complicating childbirth; O70.1 Second degree perineal laceration during delivery; Z20.822 Contact with and (suspected) exposure to COVID-19
CPT/HCPCS: 01967; 36415; 51701; 59409; 85027; A9270-GY; J0171; J2405; J2540; J2590; J3010; J7120; U0002